=== PATIENT | male | born 1935 | race Caucasian/White ===

== ENCOUNTER 2021-06-28 14:57 | Outpatient (REF) | payer MEDICARE, SELFPAY ==
[2021-06-28 16:24] LABS: COVID-19 Test Negative (Negative)
== END 2021-06-28 14:58 | disposition home or self-care (01) ==
LOC: HO.LAB 14:57
PROVIDERS: Visit Provider Internal Medicine
DX: Z20.822 Contact with and (suspected) exposure to COVID-19 (principal)
CPT/HCPCS: 36415; 87635; C9803